=== PATIENT | female | born 1980 | race Two or more races ===

== ENCOUNTER 2017-03-15 17:50 | Observation (INO) | payer MEDICAID ==
[~2017-03-15 17:50] MED LIST: LEVO150T68 PO; PREN-96 PO
== END 2017-03-15 20:37 | disposition home or self-care (01) | DRG 566 ==
LOC: LDRP 17:50
PROVIDERS: ADMIT Obstetrics & Gynecology; ATTEND Obstetrics & Gynecology
DX: O26.893 Other specified pregnancy related conditions, third trimester (principal); R52 Pain, unspecified; Z3A.33 33 weeks gestation of pregnancy; W19.XXXA Unspecified fall, initial encounter; Y93.89 Activity, other specified; Y92.003 Bedroom of unspecified non-institutional (private) residence as the place of occurrence of the external cause; Y99.8 Other external cause status
CPT/HCPCS: 59025; 76815; 81002; 82948; 82962; G0378

== ENCOUNTER 2018-04-26 01:21 | Emergency (ER) | payer SELFPAY ==
[~2018-04-26] VITALS: Ht 167.6 cm; Wt 71.2 kg
[~2018-04-26 01:21] MED LIST changes: -LEVO150T68 PO
[2018-04-26 01:42] VITALS: BP 99/64
[2018-04-26 03:33] LABS: Urine Bacteria FEW /hpf (None Seen); Urine Blood 3+ /uL (Negative); Urine Specific Gravity 1.008 (1.001-1.035); Urine WBC 36 /hpf (0 - 5)
== END 2018-04-26 03:00 | disposition left against medical advice (07) ==
LOC: ER 01:23
DX: M54.5 Low back pain (principal); R10.9 Unspecified abdominal pain; R30.0 Dysuria; Z53.21 Procedure and treatment not carried out due to patient leaving prior to being seen by health care provider
CPT/HCPCS: 81001

== ENCOUNTER 2018-04-26 20:50 | Emergency (ER) | payer SELFPAY ==
[~2018-04-26] VITALS: Ht 167.6 cm; Wt 71.2 kg
[2018-04-26 21:29] LABS: Basophils # (auto) 0 uL; Basophils % (auto) 0.3 % (0.0-2.0); Eosinophils # (auto) 0 uL; Eosinophils % (auto) 0.3 % (0.0-7.0); Hemoglobin 12.8 g/dL (12.2-16.2); Lymphocytes # (auto) 0.7 uL; Lymphocytes % (auto) 6.1 % (10.0-50.0); Mean Corpuscular Hemoglobin 29.4 pg (28.0-32.0); Mean Corpuscular Hgb Conc. 33.8 g/dL (32.0-36.0); Monocytes # (auto) 0.5 uL; Monocytes % (auto) 4.6 % (0.0-12.0); Neutrophils # (auto) 10.6 uL; Neutrophils % (auto) 88.7 % (37.0-80.0); Platelet Count (auto) 228 10^3/uL (140-450); Red Blood Cells 4.37 10^6/uL (4.0-5.20)
[2018-04-26 21:31] LABS: Urine Bacteria FEW /hpf (None Seen); Urine Blood 1+ /uL (Negative); Urine Specific Gravity 1.008 (1.001-1.035); Urine WBC 227 /hpf (0 - 5)
[2018-04-26 21:41] LABS: Albumin 3.1 g/dL (3.4-5.0); Calcium 8.4 mg/dL (8.5-10.1); Potassium 3.6 mmol/L (3.5-5.1)
[2018-04-26 21:43] LABS: BUN/Creatinine Ratio 4.8
[2018-04-26 21:46] LABS: Bilirubin, Total 0.5 mg/dL (0.2-1.0); Total Protein 7.3 g/dL (6.4-8.2)
[2018-04-26] MEDS ORDERED: ACETAMINOPHEN 325 MG TAB PO ONE ×2 (22:21→22:45)
[2018-04-27] MEDS ORDERED: cefTRIAXone 1GM/10ml IVPUSH 10 ML IV ONE (02:00)
[2018-04-27] MEDS ORDERED: SODIUM CHLORIDE 0.9% 1,000 ML IV ONE (02:00)
[2018-04-27] MEDS ORDERED: NITROFURANTOIN (MONO) 100 mg CAP PO ONE (02:15)
[2018-04-27 03:28] VITALS: BP 125/73
== END 2018-04-27 03:17 | disposition home or self-care (01) ==
LOC: EDBD 20:50 → EDUNIT# 20:50 → ER 20:59
DX: N39.0 Urinary tract infection, site not specified (principal); Z88.0 Allergy status to penicillin; Z90.89 Acquired absence of other organs
CPT/HCPCS: 36415; 80053; 81001; 84702; 85025

== ENCOUNTER 2018-06-12 15:20 | Inpatient (IN) | payer MEDICAID ==
[~2018-06-12] VITALS: Ht 165.1 cm; Wt 70.3 kg
[2018-06-12] MEDS ORDERED: LACTATED RINGER'S 1,000 ML IV ONE (16:30)
[2018-06-12 16:39] LABS: Urine Bacteria FEW /hpf (None Seen); Urine Blood 1+ /uL (Negative); Urine Mucus FEW (None Seen); Urine Specific Gravity 1.021 (1.001-1.035); Urine WBC 283 /hpf (0 - 5)
[2018-06-12] MEDS: ACETAMINOPHEN 325 MG TAB PO PRN ×2 (17:21→21:07)
[2018-06-12 18:44] LABS: Basophils # (auto) 0 uL; Basophils % (auto) 0.2 % (0.0-2.0); Eosinophils # (auto) 0 uL; Eosinophils % (auto) 0.1 % (0.0-7.0); Hematocrit 32.5 % (36.0-46.0); Hemoglobin 10.9 g/dL (12.2-16.2); Lymphocytes # (auto) 0.8 uL; Lymphocytes % (auto) 7.1 % (10.0-50.0); Mean Corpuscular Hemoglobin 29.8 pg (28.0-32.0); Mean Corpuscular Hgb Conc. 33.5 g/dL (32.0-36.0); Monocytes # (auto) 0.6 uL; Monocytes % (auto) 5.7 % (0.0-12.0); Neutrophils # (auto) 9.6 uL; Neutrophils % (auto) 86.9 % (37.0-80.0); Platelet Count (auto) 197 10^3/uL (140-450); Red Blood Cells 3.65 10^6/uL (4.0-5.20); Red Cell Distribution Width 15.7 % (11.8-14.3); White Blood Cell 11.1 10^3/uL (4.4-10.8)
[2018-06-12] MEDS ORDERED: cefTRIAXone 1GM/50ML D5W 50 ML IV ONE (18:48)
[2018-06-12] MEDS: SODIUM CHLORIDE 0.9% 1,000 ML IV SCH (18:50)
[2018-06-13] MEDS: SODIUM CHLORIDE 0.9% 1,000 ML IV SCH ×4 (01:00→20:10)
[2018-06-13] MEDS: ACETAMINOPHEN 325 MG TAB PO PRN ×3 (02:19→14:23)
[2018-06-13] MEDS: cefTRIAXone 1GM/50ML D5W 50 ML IV SCH (08:49)
[2018-06-13] MEDS: HYDROcodone-ACET 10/325MG TAB PO PRN ×2 (16:09→20:27)
[2018-06-13] MEDS ORDERED: HYDROcodone-ACET 10/325MG TAB ONE (20:22)
[2018-06-14] MEDS: HYDROcodone-ACET 10/325MG TAB PO PRN ×2 (03:24→10:56)
[2018-06-14] MEDS: cefTRIAXone 1GM/50ML D5W 50 ML IV SCH (08:30)
[2018-06-14] MEDS: ACETAMINOPHEN 325 MG TAB PO PRN (16:28)
[2018-06-15] MEDS: HYDROcodone-ACET 10/325MG TAB PO PRN (00:48)
[2018-06-15] MEDS: cefTRIAXone 1GM/50ML D5W 50 ML IV SCH (08:58)
[2018-06-15] MEDS ORDERED: CEPH250C PO (10:01)
== END 2018-06-15 11:00 | disposition home or self-care (01) | DRG 566 ==
LOC: LDRP 15:20 → OBSVTOIN 15:20 → LDRP 17:50
PROVIDERS: ADMIT Specialist; ATTEND Specialist
DX: O23.02 Infections of kidney in pregnancy, second trimester (principal); O75.2 Pyrexia during labor, not elsewhere classified; Z3A.24 24 weeks gestation of pregnancy; Z87.440 Personal history of urinary (tract) infections; Z90.49 Acquired absence of other specified parts of digestive tract; Z88.0 Allergy status to penicillin
CPT/HCPCS: 36415; 59025; 76775; 81001; 81002; 85025; 87086; 96361; 96365; 96366; G0378; J0696

== ENCOUNTER 2018-08-22 09:45 | Observation (INO) | payer MEDICAID ==
[~2018-08-22 09:45] MED LIST changes: +CEPH250C PO
== END 2018-08-22 11:00 | disposition home or self-care (01) | DRG 566 ==
LOC: LDRP 09:45
PROVIDERS: ADMIT Obstetrics & Gynecology; ATTEND Obstetrics & Gynecology
DX: O42.913 Preterm premature rupture of membranes, unspecified as to length of time between rupture and onset of labor, third trimester (principal); O09.523 Supervision of elderly multigravida, third trimester; Z3A.34 34 weeks gestation of pregnancy
CPT/HCPCS: 59025; 76818; 81002; G0378

== ENCOUNTER 2018-09-05 19:18 | Observation (INO) | payer MEDICAID | END 2018-09-05 21:05 | disposition home or self-care (01) | DRG 566 | LOC: LDRP 19:18 | PROVIDERS: ADMIT Obstetrics & Gynecology; ATTEND Obstetrics & Gynecology | DX: O24.419 Gestational diabetes mellitus in pregnancy, unspecified control (principal); E86.9 Volume depletion, unspecified; O99.283 Endocrine, nutritional and metabolic diseases complicating pregnancy, third trimester; O26.893 Other specified pregnancy related conditions, third trimester; N89.8 Other specified noninflammatory disorders of vagina; O09.523 Supervision of elderly multigravida, third trimester; Z87.891 Personal history of nicotine dependence; Z3A.36 36 weeks gestation of pregnancy | CPT/HCPCS: 59025; 76818; 81002; 82948; 82962; G0378 ==

== ENCOUNTER 2018-09-09 16:55 | Observation (INO) | payer MEDICAID | END 2018-09-09 18:26 | disposition home or self-care (01) | DRG 566 | LOC: LDRP 16:55 | PROVIDERS: ADMIT Obstetrics & Gynecology; ATTEND Obstetrics & Gynecology | DX: O24.419 Gestational diabetes mellitus in pregnancy, unspecified control (principal); O09.523 Supervision of elderly multigravida, third trimester; Z3A.37 37 weeks gestation of pregnancy; Z87.891 Personal history of nicotine dependence | CPT/HCPCS: 59025; 76818; 81002; 82948; 82962; G0378 ==

== ENCOUNTER 2018-09-12 16:50 | Observation (INO) | payer MEDICAID | END 2018-09-12 17:45 | disposition home or self-care (01) | DRG 566 | LOC: LDRP 16:50 | PROVIDERS: ADMIT Obstetrics & Gynecology; ATTEND Obstetrics & Gynecology | DX: O24.419 Gestational diabetes mellitus in pregnancy, unspecified control (principal); O09.523 Supervision of elderly multigravida, third trimester; Z3A.37 37 weeks gestation of pregnancy | CPT/HCPCS: 59025; 76818; 81002; 82962; G0378 ==

== ENCOUNTER 2018-09-16 16:50 | Observation (INO) | payer MEDICAID ==
[2018-09-16 17:43] LABS: Urine Bacteria FEW /hpf (None Seen); Urine Blood Negative /uL (Negative); Urine Specific Gravity 1.015 (1.001-1.035); Urine WBC 4 /hpf (0 - 5)
[2018-09-16] MEDS ORDERED: PREN-153 PO (17:56)
== END 2018-09-16 20:05 | disposition home or self-care (01) | DRG 566 ==
LOC: LDRP 16:50
PROVIDERS: ADMIT Obstetrics & Gynecology; ATTEND Obstetrics & Gynecology
DX: O24.419 Gestational diabetes mellitus in pregnancy, unspecified control (principal); O26.893 Other specified pregnancy related conditions, third trimester; O09.523 Supervision of elderly multigravida, third trimester; O12.03 Gestational edema, third trimester; O62.9 Abnormality of forces of labor, unspecified; R11.0 Nausea; R51 Headache; Z87.891 Personal history of nicotine dependence; Z3A.38 38 weeks gestation of pregnancy
CPT/HCPCS: 59025; 76818; 81001; 81002; 82948; 82962; 87086; G0378

== ENCOUNTER 2018-09-18 10:25 | Observation (INO) | payer MEDICAID ==
[~2018-09-18 10:25] MED LIST changes: -CEPH250C PO; +PREN-153 PO; -PREN-96 PO
== END 2018-09-18 12:50 | disposition home or self-care (01) | DRG 566 ==
LOC: LDRP 10:25
PROVIDERS: ADMIT Obstetrics & Gynecology; ATTEND Obstetrics & Gynecology
DX: O24.419 Gestational diabetes mellitus in pregnancy, unspecified control (principal); O09.523 Supervision of elderly multigravida, third trimester; Z3A.38 38 weeks gestation of pregnancy; Z87.891 Personal history of nicotine dependence
CPT/HCPCS: 59025; 76818; 81002; 82948; G0378

== ENCOUNTER 2024-10-12 18:15 | Emergency (ER) | payer MEDICAID, OTHER ==
[~2024-10-12] VITALS: Ht 162.6 cm; Wt 65.0 kg
[~2024-10-12 18:15] MED LIST changes: -PREN-153 PO; +PREN1TAB71 PO
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
[2024-10-12 21:03] VITALS: BP 122/85; TEMP 97.7
[2024-10-12] MEDS ORDERED: METH4PAK PO (21:14)
[2024-10-12] MEDS ORDERED: TIZA-142 PO (21:14)
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
[2024-10-12 21:31] VITALS: PULSE 74; RESP 16; O2SAT 100
== END 2024-10-12 22:09 | disposition home or self-care (01) ==
LOC: ER 18:15 → EDBD 18:15 → ER 21:32
DX: S46.811A Strain of other muscles, fascia and tendons at shoulder and upper arm level, right arm, initial encounter (principal); S66.212A Strain of extensor muscle, fascia and tendon of left thumb at wrist and hand level, initial encounter; S80.01XA Contusion of right knee, initial encounter; Z90.49 Acquired absence of other specified parts of digestive tract; Z88.0 Allergy status to penicillin; V89.2XXA Person injured in unspecified motor-vehicle accident, traffic, initial encounter; Y93.I9 Activity, other involving external motion; Y92.488 Other paved roadways as the place of occurrence of the external cause; Y99.8 Other external cause status
CPT/HCPCS: 73060